=== PATIENT | female | born 1985 | race American Indian/Alaskan Native ===

== ENCOUNTER 2020-08-09 21:22 | Emergency (ER) | payer SELFPAY ==
[2020-08-09 21:45] VITALS: BP 141/92
== END 2020-08-09 23:10 | disposition left against medical advice (07) ==
LOC: ED 21:22
DX: R10.9 Unspecified abdominal pain (principal); Z53.21 Procedure and treatment not carried out due to patient leaving prior to being seen by health care provider

== ENCOUNTER 2022-02-16 21:18 | Emergency (ER) | payer OTHER, MEDICAID ==
[2022-02-17] MEDS ORDERED: KETOROLAC 30 MG/1 ML INJ IM ONE (00:31)
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
[2022-02-17 01:22] VITALS: BP 142/86
== END 2022-02-17 01:23 | disposition home or self-care (01) ==
LOC: ED 21:18
DX: M79.641 Pain in right hand (principal); M54.50 Low back pain, unspecified; Z91.040 Latex allergy status; Z91.09 Other allergy status, other than to drugs and biological substances; Z79.899 Other long term (current) drug therapy; V89.2XXA Person injured in unspecified motor-vehicle accident, traffic, initial encounter; Y93.89 Activity, other specified; Y92.89 Other specified places as the place of occurrence of the external cause; Y99.8 Other external cause status
CPT/HCPCS: 96372; 99282; J1885